=== PATIENT | male | born 1990 | race Caucasian/White ===

== ENCOUNTER 2017-11-16 20:49 | Emergency (ER) | payer BC ==
[~2017-11-16] VITALS: Ht 182.9 cm; Wt 108.9 kg
[2017-11-16] MEDS ORDERED: KETOROLAC 60 MG/2 ML INJ. IM ONE (21:30)
[2017-11-16 21:58] VITALS: BP 121/65
--- NOTE | 2017-11-16 22:07 | PHYS DOC ---
Past Medical History Past Medical History: Anxiety, Asthma, Depression Past Surgical History: Tonsillectomy, Other Additional Past Surgical Histo: Adenoidectomy Alcohol Use: Occasionally Drug Use: None Adult General Chief Complaint Chief Complaint: ASTHMA HPI HPI Patient is a 27 year old male who reports to the department today with complaints of an asthma attack approximately 1999. Patient states that the attack lasted for 40 minutes because he was unable to find his albuterol inhaler. He states he found his inhaler and it did help to relieve the asthma attack. However, he is now feeling anxious and has pain with deep inspiration of his right posterior chest. He denies any known injury. He states that he thinks it is from coughing so much during his attack. Patient currently denies any shortness of breath, wheezing, chest pain, or difficulty breathing. He rates the pain in his right back as a 4 out of 10 on the pain scale. Patient states he is also feeling rather anxious, he takes BuSpar twice daily and this morning he forgot to take his first dose of the medication. He states he took his evening dose of BuSpar prior to coming to the emergency department. Review of Systems Review of Systems Constitutional: Denies fever or chills, reports feeling anxious [] Eyes: Denies change in visual acuity, redness, or eye pain [] HENT: Denies nasal congestion or sore throat [] Respiratory: Denies cough or shortness of breath; reports having an asthma attack at 8 PM resolved after using his inhaler [] Cardiovascular: Denies chest pain Musculoskeletal: Denies joint pain; reports pain in right posterior back with deep inspiration [] Neurologic: Denies headache, focal weakness or sensory changes [] All other systems were reviewed and found to be within normal limits, except as documented in this note. Current Medications Current Medications Current Medications Medications (Trade) Dose Ordered Sig/[facility] Start Time Stop Time Status Last Admin Dose Admin Ketorolac Tromethamine (Toradol Im) 30 mg 1X ONCE 11/16/17 21:30 11/16/17 21:31 DC 11/16/17 21:35 30 MG Allergies Allergies Allergies Coded Allergies Type Severity Reaction Last Updated Verified No Known Drug Allergies 11/16/17 No Physical Exam Physical Exam Constitutional: Well developed, well nourished, no acute distress, non-toxic appearance, speaking full sentences. [] HENT: Normocephalic, atraumatic, bilateral external ears normal, oropharynx moist, no oral exudates, nose normal. [] Eyes: PERRLA, conjunctiva normal, no discharge. [] Neck: Normal, no tenderness, supple, no stridor. [] Cardiovascular:Heart rate regular rhythm, no murmur [] Lungs & Thorax: Bilateral breath sounds clear to auscultation [] Skin: Warm, dry, no erythema, no rash, cap refill less than 2 seconds. [] Back: No tenderness, no CVA tenderness. [] Extremities: No tenderness, no cyanosis, no clubbing, ROM intact, no edema. [] Neurologic: Alert and oriented X 3, normal motor function, normal sensory function, no focal deficits noted. [] Psychologic: Affect normal, judgement normal, mood normal. [] Current Patient Data Vital Signs Vital Signs Date Time Temp Pulse Resp B/P (MAP) Pulse Ox O2 Delivery O2 Flow Rate FiO2 11/16/17 21:58 94 121/65 (83) 96 Room Air 11/16/17 20:55 98.6 18 98.6 EKG EKG [] Radiology/Procedures Radiology/Procedures [] Course & Med Decision Making Course & Med Decision Making Pertinent Labs and Imaging studies reviewed. (See chart for details) Patient is a 27-year-old male who presented to the emergency room with pain in his right back after having an asthma attack that lasted approximately 40 minutes this evening. VSS, lungs CTA, patient was given 30 mg of IM Toradol for relief of his pain. Discussed chest x-ray with the patient, advised him that his lung sounds were clear. Patient offered a chest x-ray he declines. Patient verbalizes feeling better after resting on the cot in the emergency department. States that he has been called in to work and needs discharged. Patient verbalized an understanding of discharge instructions, follow-up, and return to ED instructions with no further questions or concerns. [] Dragon Disclaimer Dragon Disclaimer This electronic medical record was generated, in whole or in part, using a voice recognition dictation system. Departure Departure Impression: Primary Impression: Asthma attack Additional Impression: Anxiety Disposition: HOME, SELF-CARE Condition: STABLE Referrals: AMRITA PLATA APRN (PCP) Patient Instructions: Asthma, Adult, [id number] Additional Instructions: Do not skip doses of your BuSpar. Continue to use your inhaler in the event of another asthma attack. Avoid airway irritants such as perfumes, smoke, dust, pollen, and animal dander. Follow-up with her primary care doctor in the next 1- 2 days. You may take Tylenol or ibuprofen for relief of your right back pain. Return to the emergency room if your symptoms worsen. Problem Qualifiers Primary Impression: Asthma attack Asthma severity: unspecified severity Asthma persistence: unspecified Qualified Codes: J45.901 - Unspecified asthma with (acute) exacerbation WAGNER ADAM APRN Nov 16, 2017 22:07
== END 2017-11-16 22:13 | disposition home or self-care (01) ==
LOC: ER 20:49
DX: J45.901 Unspecified asthma with (acute) exacerbation (principal); F41.9 Anxiety disorder, unspecified; F32.9 Major depressive disorder, single episode, unspecified; Z90.89 Acquired absence of other organs
CPT/HCPCS: 96372; 99283; J1885